=== PATIENT | female | born 1975 | race Asian ===

== ENCOUNTER 2017-08-10 23:29 | Emergency (ER) | payer SELFPAY ==
[2017-08-11 01:01] LABS: PLATELET COUNT 345 x10^3mcL (130-400); RED CELL DISTRIBUTION WIDTH 12.5 % (11.5-14.5)
[2017-08-11 01:06] LABS: BASOPHIL % 0 % (0-2)
[2017-08-11 01:09] LABS: CALCIUM 9.8 mg/dL (8.5-10.1); CARBON DIOXIDE 26.2 mmol/L (21-32); CHLORIDE SERUM 104 mmol/L (98-107); CREATININE SERUM 0.6 mg/dL (0.6-1.0); GFR1 > 60 mL/min; GLUCOSE SERUM 138 mg/dL (74-106); POTASSIUM SERUM 3.6 mmol/L (3.5-5.1); SODIUM SERUM 137 mmol/L (136-145)
[2017-08-11 01:13] LABS: ALBUMIN 3.9 g/dL (3.4-5.0); ALKALINE PHOSPHATASE 65 U/L (46-116); ALT/SGPT 32 U/L (14-59); AST/SGOT 18 U/L (15-37); BILIRUBIN TOTAL 0.67 mg/dL (0.20-1.00); LIPASE 61 IU/L (73-393)
[2017-08-11 01:14] LABS: TOTAL PROTEIN, SERUM 9.3 g/dL (6.4-8.2)
[2017-08-11 02:26] VITALS: BP 125/89
== END 2017-08-11 02:26 | disposition home or self-care (01) ==
LOC: ED 23:29
PROVIDERS: Emergency Medicine
DX: R11.10 Vomiting, unspecified (principal); R19.7 Diarrhea, unspecified; R10.10 Upper abdominal pain, unspecified
CPT/HCPCS: 36415; J0500; Q0162